=== PATIENT | female | born 1965 | race African-American/Black ===

== ENCOUNTER 2019-12-11 22:15 | Inpatient (IN) | payer BC ==
[~2019-12-11] VITALS: Ht 165.1 cm; Wt 55.0 kg
[2019-12-11] MEDS ORDERED: SODIUM CHLORIDE 0.9% 1,000 ML IV ONE (22:43)
[2019-12-11 22:57] LABS: BASOPHILS % 0.4 % (0.0-2.0); EOSINOPHILS % 0.1 % (0.0-5.0); MEAN CORPUSCULAR HEMOGLOBIN 32.5 pg (28.0-32.0); MEAN CORPUSCULAR VOLUME 91.1 fL (81.0-99.0); MEAN PLATELET VOLUME 8.4 fl (7.4-10.4); NEUTROPHILS % 77.5 % (40.0-76.0); PLATELET 270 x1000/uL (130-400); RED CELL DISTRIBUTION WIDTH 12.5 % (11.6-14.6)
[2019-12-11 23:02] LABS: CHLORIDE 92 mEq/L (98-107)
[2019-12-11 23:06] LABS: PARTIAL THROMBOPLASTIN TIME 25.7 sec (23.4-31.0); PROTHROMBIN TIME 10.7 sec (9.6-11.0)
[2019-12-12] VITALS (10 sets, daily range): BP systolic 97–147; BP diastolic 57–90
[2019-12-12] MEDS ORDERED: LEVETIRACETAM 500MG PREMIX 100 ML IV ONE (00:45)
[2019-12-12] MEDS ORDERED: DEXAMETHASONE 10 MG/ML VIAL IV ONE (00:45)
[2019-12-12] MEDS ORDERED: ONDANSETRON HCL 4MG TABLET PO PRN (06:30)
[2019-12-12] MEDS ORDERED: SODIUM CHL 0.9% + KCL 20MEQ/L 1,000 ML IV SCH (08:00)
[2019-12-12] MEDS ORDERED: ACETAMINOPHEN 325MG TABLET PO PRN (08:45)
[2019-12-12] MEDS: PANTOPRAZOLE SODIUM 40 MG/VIAL IV SCH (09:34)
[2019-12-12] MEDS: LEVETIRACETAM 500MG PREMIX 100 ML IV SCH ×2 (09:34→20:54)
[2019-12-12 09:41] LABS: CHLORIDE 100 mEq/L (98-107)
[2019-12-12 09:45] LABS: BASOPHILS % 0.1 % (0.0-2.0); HEMOGLOBIN. 15.2 g/dL (12.0-16.0); LYMPHOCYTES % 12.1 % (20.0-50.0); MEAN CORPUSCULAR HEMOGLOBIN 32.3 pg (28.0-32.0); MEAN CORPUSCULAR VOLUME 91.6 fL (81.0-99.0); MEAN PLATELET VOLUME 8.5 fl (7.4-10.4); MONOCYTES % 1.5 % (2.0-8.0); NEUTROPHILS % 86.3 % (40.0-76.0); PLATELET 290 x1000/uL (130-400)
[2019-12-12] MEDS ORDERED: NICARDIPINE 100 MG in SODIUM CHLORIDE 0.9% 60 ML IV PRN (09:45)
[2019-12-12] MEDS ORDERED: MORPHINE SULFATE 2 MG/ML CPJ (NOT FOR IM USE) IV PRN (09:45)
[2019-12-12] MEDS ORDERED: DEXT 5%/LACTATED RINGERS 1,000 ML IV SCH (09:45)
[2019-12-12] MEDS ORDERED: LEVETIRACETAM 500 MG in SODIUM CHLORIDE 0.9% 100 ML IV SCH (10:00)
[2019-12-12] MEDS ORDERED: GADOBENATE DIMEGLUMINE 529 MG/ML 10ML IV ONE (10:21)
[2019-12-12] MEDS: DEXAMETHASONE 4MG/ML 1ML VIAL IV SCH ×2 (11:57→18:32)
[2019-12-12 18:15] LABS: CLARITY URINE CLEAR (CLEAR); COLOR URINE YELLOW (YELLOW); KETONES URINE NEGATIVE (NEGATIVE); LEUKOCYTE ESTERASE URINE NEGATIVE (NEGATIVE); NITRITE URINE NEGATIVE (NEGATIVE); OCCULT BLOOD URINE NEGATIVE (NEGATIVE); PROTEIN URINE NEGATIVE (NEGATIVE); SPECIFIC GRAVITY URINE 1.029 (1.005-1.030); UROBILINOGEN URINE 0.2 E.U./dL (0.2-1.0)
[2019-12-12 18:25] LABS: *AMPHETAMINES SCREEN URINE NEGATIVE (NEGATIVE); *BARBITURATES SCREEN URINE NEGATIVE (NEGATIVE)
[2019-12-12 18:26] LABS: *BENZODIAZEPINES SCREEN URINE NEGATIVE (NEGATIVE); *COCAINE SCREEN URINE NEGATIVE (NEGATIVE); CANNABINOID URINE SCREEN NEGATIVE (NEGATIVE); METHADONE URINE SCREEN NEGATIVE (NEGATIVE); OPIATES URINE SCREEN NEGATIVE (NEGATIVE); PHENCYCLIDINE URINE SCREEN NEGATIVE (NEGATIVE)
[2019-12-12] MEDS ORDERED: IOHEXOL-300 100 ML BOTTLE ONE (18:56)
[2019-12-13] VITALS (11 sets, daily range): BP systolic 60–132; BP diastolic 52–76
[2019-12-13] MEDS: DEXAMETHASONE 4MG/ML 1ML VIAL IV SCH ×3 (00:01→12:52)
[2019-12-13 06:29] LABS: CHLORIDE 103 mEq/L (98-107)
[2019-12-13 06:30] LABS: HEMATOCRIT. 43.2 % (36.0-48.0); HEMOGLOBIN. 14.9 g/dL (12.0-16.0); MEAN CORPUSCULAR HEMOGLOBIN 31.5 pg (28.0-32.0); MEAN CORPUSCULAR VOLUME 91.3 fL (81.0-99.0); MEAN PLATELET VOLUME 8.8 fl (7.4-10.4); PLATELET 313 x1000/uL (130-400); RED BLOOD CELL COUNT 4.74 mill/uL (4.2-5.4); RED CELL DISTRIBUTION WIDTH 12.8 % (11.6-14.6)
[2019-12-13] MEDS: PANTOPRAZOLE SODIUM 40 MG/VIAL IV SCH (10:13)
[2019-12-13] MEDS: LEVETIRACETAM 500MG PREMIX 100 ML IV SCH (10:13)
[2019-12-13 11:53] LABS: PLATELET ESTIMATE NORMAL
[2019-12-13] MEDS ORDERED: ALBU18HF2 IH (11:56)
[2019-12-13] MEDS ORDERED: KEPP500 MT (11:56)
[2019-12-13] MEDS ORDERED: HYDR-4001 MT (11:56)
[2019-12-13] MEDS ORDERED: MORPHINE SULFATE 2 MG/ML CPJ (NOT FOR IM USE) IV PRN (13:15)
[2019-12-13] MEDS ORDERED: HYDROMORPHONE HCL/PF 2MG/ML CPJ IV PRN (13:15)
[2019-12-13] MEDS ORDERED: SODIUM CHLORIDE 0.9% 1,000 ML IV SCH (13:15)
[2019-12-13] MEDS ORDERED: ONDANSETRON HCL 4MG/2ML INJ IV PRN (13:15)
[2019-12-13] MEDS ORDERED: MEPERIDINE HCL/PF 25MG/ML CPJ IV PRN (13:15)
== END 2019-12-13 17:51 | disposition home or self-care (01) | DRG 73 ==
LOC: ER 22:15 → 5EST 12-12 01:19 → UNDODISIN 12-12 01:30 → EDBEDREQSVC 12-12 01:58 → EDBEDREQ 12-12 01:58 → EDBEDREQTM 12-12 01:58 → ENRESERV 12-12 03:46
PROVIDERS: ADMIT Internal Medicine; ATTEND Internal Medicine
DX: G90.8 Other disorders of autonomic nervous system (principal); G93.6 Cerebral edema; E87.1 Hypo-osmolality and hyponatremia; C34.90 Malignant neoplasm of unspecified part of unspecified bronchus or lung; R00.1 Bradycardia, unspecified; I10 Essential (primary) hypertension; G93.9 Disorder of brain, unspecified; E87.8 Other disorders of electrolyte and fluid balance, not elsewhere classified; H53.9 Unspecified visual disturbance; I45.10 Unspecified right bundle-branch block; Z80.41 Family history of malignant neoplasm of ovary; Z85.038 Personal history of other malignant neoplasm of large intestine; Z90.49 Acquired absence of other specified parts of digestive tract
CPT/HCPCS: 36415; 70544; 70553; 71045; 71260; 74177; 80048; 80053; 80305; 81003; 83735; 83880; 84443; 84484; 85025; 93005; 93306; 99291; A9577; C9113; J1100; J1953; J2270; J3480; J7030; J7121; Q9967